=== PATIENT | female | born 1970 | race Caucasian/White ===

== ENCOUNTER 2018-08-17 15:33 | Outpatient (CLI) | payer OTHER ==
[2018-08-17] MEDS ORDERED: DULO30CA2 PO (16:03)
== END 2018-08-17 23:59 | disposition home or self-care (01) ==
LOC: STAR 15:33
PROVIDERS: ATTEND Surgery
DX: Z02.9 Encounter for administrative examinations, unspecified (principal)

== ENCOUNTER 2018-08-22 12:40 | Day surgery (SDC) | payer OTHER ==
[2018-08-17 15:29] VITALS: BP 126/80
[~2018-08-22] VITALS: Ht 172.7 cm; Wt 73.2 kg
[~2018-08-22 12:40] MED LIST: BUPIVACAINE/PF-EPI 0.5% 1:200K ONE; DULO30CA2 PO
[2018-08-22 13:25] LABS: HCG UR SG 1.033 (1.003-1.030)
[2018-08-22] MEDS ORDERED: INDOCYANINE GREEN 25 MG VIAL ONE (13:29)
[2018-08-22] MEDS ORDERED: INDOCYANINE GREEN 25 MG VIAL IV ONE (13:30)
[2018-08-22] MEDS ORDERED: LACTATED RINGERS 1,000 ML IV SCH (13:37)
[2018-08-22] MEDS ORDERED: MIDAZOLAM 1 MG/ML, 2ML ONE (13:41)
[2018-08-22] MEDS ORDERED: FENTANYL PF 250 MCG/5ML ONE (13:41)
[2018-08-22] MEDS ORDERED: APREPITANT 40 MG CAPSULE PO STA (13:42)
[2018-08-22] MEDS ORDERED: DEXAMETHASONE 4 MG/ML, 5ML ONE (13:45)
[2018-08-22] MEDS ORDERED: ONDANSETRON 2MG/ML, 2ML ONE (13:45)
[2018-08-22] MEDS ORDERED: PROPOFOL 10 MG/ML, 20ML ONE (13:45)
[2018-08-22] MEDS ORDERED: ROCURONIUM 10MG/ML,5ML ONE (13:45)
[2018-08-22] MEDS ORDERED: CEFOTETAN PMX 2GM/50ML 50 ML ONE (13:45)
[2018-08-22] MEDS ORDERED: ACETAMINOPHEN 500 MG TABLET PO ONE (14:00)
[2018-08-22] MEDS ORDERED: GABAPENTIN 300 MG CAPSULE PO ONE (14:00)
[2018-08-22] MEDS ORDERED: PROMETHAZINE 25 MG/ML, 1ML IV PRN (14:30)
[2018-08-22] MEDS ORDERED: LORazepam 2 MG/ML, 1ML IVPush PRN (14:30)
[2018-08-22] MEDS ORDERED: OXYcodone 5 MG/5 ML ORAL.SOL UDC PO PRN (14:30)
[2018-08-22] MEDS ORDERED: hydrALAzine 20 MG/ML, 1ML IV PRN (14:30)
[2018-08-22] MEDS ORDERED: HALOPERIDOL 5 MG/ML IV PRN (14:30)
[2018-08-22] MEDS ORDERED: FENTANYL PF 100 MCG/2ML IV PRN (14:30)
[2018-08-22] MEDS ORDERED: MEPERIDINE/PF 25MG/0.5ML IVPush PRN (14:30)
[2018-08-22] MEDS ORDERED: HYDROmorphone 2 MG/ML, 1ML IVPush PRN (14:30)
[2018-08-22] MEDS ORDERED: OXYcodone 5 MG/5 ML ORAL.SOL UDC ONE (15:39)
== END 2018-08-22 17:50 | disposition home or self-care (01) ==
LOC: OUT 12:40
PROVIDERS: ATTEND Surgery
DX: K80.10 Calculus of gallbladder with chronic cholecystitis without obstruction (principal); Z90.3 Acquired absence of stomach [part of]
CPT/HCPCS: 47563; 81025; 88304; J1100; J2250; J2405; J2704; J3010; J3490; J7120; J8501; S2900

== ENCOUNTER 2018-09-02 21:58 | Emergency (ER) | payer OTHER ==
[~2018-09-02] VITALS: Ht 172.7 cm; Wt 67.0 kg
[~2018-09-02 21:58] MED LIST changes: -BUPIVACAINE/PF-EPI 0.5% 1:200K ONE
--- NOTE | 2018-09-02 22:21 | NUR ---
PT PRESENTS TO ED WITH C/O RIGHT WRIST PAIN S/P FALL DOWN STAIRS TONIGHT, PT IS INTOXICATED BUT AWAKE AND ORIENTED X 4. NEURO INTACT. CMS INTACT TO RIGHT WRIST, HOWEVER WRIST IS SWOLLEN AND MILDLY DEFORMED. BP AND SPO2 MONITORS IN PLACE, CALL LIGHT IN REACH. PT MOVED TO ROOM 21, REPORT GIVEN TO EMILY TEE.
[2018-09-02] MEDS ORDERED: BUPIVACAINE 0.25% ONE (22:36)
[2018-09-02 22:53] LABS: BASOPHILS # (AUTO) 0.04 x10^3/uL (0-0.1); BASOPHILS % (AUTO) 1 % (0-1); EOSINOPHILS # (AUTO) 0.06 x10^3/uL (0-0.4); EOSINOPHILS % (AUTO) 2 % (1-7); LYMPHOCYTES # (AUTO) 1.02 x10^3/uL (1-3.4); LYMPHOCYTES % (AUTO) 32 % (22-44); MD NO; MEAN CORPUSCULAR HEMOGLOBIN 32.4 pg (27.0-34.8); MEAN CORPUSCULAR VOLUME 95.5 fL (80-100); MEAN PLATELET VOLUME 6.4 fL (7.4-10.4); MONOCYTES # (AUTO) 0.45 x10^3/uL (0.2-0.8); MONOCYTES % (AUTO) 14 % (2-9); NEUTROPHILS # (AUTO) 1.59 x10^3/uL (1.8-6.8); NEUTROPHILS % (AUTO) 50 % (42-75); PLATELET COUNT 374 x10^3/uL (130-400)
[2018-09-02] MEDS ORDERED: BUPIVACAINE 0.25% INFIL ONE (23:00)
[2018-09-02 23:05] LABS: ALANINE AMINOTRANSFERASE 66 U/L (12-78); ALBUMIN 3.2 g/dL (3.4-5.0); ANION GAP 5 mmol/L (5-15); CALCIUM 7.9 mg/dL (8.5-10.1); CHLORIDE 111 mmol/L (98-107); CREATININE 0.81 mg/dL (0.55-1.02)
[2018-09-02 23:07] LABS: ALKALINE PHOSPHATASE 93 U/L (45-117); BILIRUBIN,TOTAL 0.4 mg/dL (0.2-1.0); TOTAL PROTEIN 7.3 g/dL (6.4-8.2)
[2018-09-02 23:18] VITALS: BP 119/74
== END 2018-09-02 23:21 | disposition home or self-care (01) ==
LOC: ED 23:09
DX: S52.511A Displaced fracture of right radial styloid process, initial encounter for closed fracture (principal); S09.8XXA Other specified injuries of head, initial encounter; R51 Headache; F10.229 Alcohol dependence with intoxication, unspecified; W10.8XXA Fall (on) (from) other stairs and steps, initial encounter; Y93.89 Activity, other specified; Y92.89 Other specified places as the place of occurrence of the external cause; Y99.8 Other external cause status
CPT/HCPCS: 29125; 36415; 70450; 72125; 80053; 80307; 85025; 99284

== ENCOUNTER 2018-11-09 03:29 | Inpatient (IN) | payer OTHER ==
[~2018-11-09] VITALS: Ht 172.7 cm; Wt 69.5 kg
--- NOTE | 2018-11-09 03:44 | NUR ---
ESCORTED PATIENT (AMBULATORY AND STEADY ON FEET) TO ROOM 18. ASSUMING CARE OF PATIENT. DR. PEREZ AT BEDSIDE. PT C/O UPPER ABD PAIN AND DARK STOOLS BEGINNING AT 5PM YESTERDAY. PT ALSO C/O LIGHTHEADEDESS AND SOB DURING THE DAY YESTERDAY AND VOMITING WELL. PT APPEARS PALE BUT IN NO ACUTE DISTRESS.
[2018-11-09] MEDS ORDERED: OMEP20TA62 PO (03:49)
[2018-11-09] MEDS ORDERED: PANTOPRAZOLE 80 MG in SODIUM CHLORIDE 0.9% 100 ML IV SCH (03:52)
[2018-11-09] MEDS ORDERED: PANTOPRAZOLE 80 MG in SODIUM CHLORIDE 0.9% 50 ML IVPB ONE (03:52)
[2018-11-09] MEDS ORDERED: SODIUM CHLORIDE 0.9% 1,000ML IVBOLUS ONE (04:00)
[2018-11-09] MEDS ORDERED: SODIUM CHLORIDE FLUSH 10ML SYR IVF ONE (04:00)
[2018-11-09 04:18] LABS: BASOPHILS % (AUTO) 0 % (0-1); EOSINOPHILS % (AUTO) 0 % (1-7); LYMPHOCYTES # (AUTO) 0.66 x10^3/uL (1-3.4); LYMPHOCYTES % (AUTO) 9 % (22-44); MD NO; MEAN CORPUSCULAR HEMOGLOBIN 32.9 pg (27.0-34.8); MEAN CORPUSCULAR HGB CONC 34.1 g/dL (32.4-35.8); MEAN CORPUSCULAR VOLUME 96.6 fL (80-100); MEAN PLATELET VOLUME 7.3 fL (7.4-10.4); MONOCYTES # (AUTO) 0.24 x10^3/uL (0.2-0.8); MONOCYTES % (AUTO) 3 % (2-9); NEUTROPHILS # (AUTO) 6.86 x10^3/uL (1.8-6.8); NEUTROPHILS % (AUTO) 88 % (42-75); PLATELET COUNT 258 x10^3/uL (130-400); RED BLOOD COUNT 4.67 x10^6/uL (3.82-5.3); RED CELL DISTRIBUTION WIDTH 18.2 % (9.6-15.2)
[2018-11-09] MEDS ORDERED: ONDANSETRON 2MG/ML, 2ML ONE (04:25)
[2018-11-09 04:26] LABS: INTERNATIONAL NORMALIZED RATIO 1.1 (0.93-1.1); PROTHROMBIN TIME 11.5 Seconds (9.6-11.5)
[2018-11-09 04:27] LABS: ALANINE AMINOTRANSFERASE 44 U/L (12-78); ALBUMIN 4.2 g/dL (3.4-5.0); ANION GAP 17 mmol/L (5-15); CHLORIDE 100 mmol/L (98-107); CREATININE 1.25 mg/dL (0.55-1.02)
[2018-11-09 04:30] LABS: ALKALINE PHOSPHATASE 149 U/L (45-117); BILIRUBIN,TOTAL 2.2 mg/dL (0.2-1.0); TOTAL PROTEIN 9.6 g/dL (6.4-8.2)
[2018-11-09] MEDS ORDERED: ONDANSETRON 2MG/ML, 2ML IVPush ONE (04:30)
--- NOTE | 2018-11-09 04:32 | NUR ---
PROTONIX BOLUS STARTED AND PATIENT COMPLAINED OF NAUSEA. DR. PEREZ NOTIFIED. ZOFRAN ORDERED AND GIVEN. PT ON HOSPITAL CODER AND IS IN SINUS TACHYCARDIA WITH NO ECTOPIC BEATS. PATIENT RESTING WITH NO DISTRESS AND NO OTHER COMPLAINTS.
--- NOTE | 2018-11-09 04:34 | NUR ---
PROTONIX BOLUS COMPLETE. HOLDING PROTONIX INFUSION PER DR. PEREZ.
[2018-11-09] MEDS ORDERED: MORPHINE SULFATE 4 MG/ML, 1ML ONE (04:47)
--- NOTE | 2018-11-09 04:49 | NUR ---
PATIENT MEDICATED WITH MORPHINE IVP FOR PAIN 02/09.
[2018-11-09] MEDS ORDERED: MORPHINE SULFATE 4 MG/ML, 1ML IVPush PRN (05:00)
[2018-11-09] MEDS: SODIUM CHLORIDE 0.9% 1,000 ML IV ONE ×2 (05:03→05:22)
[2018-11-09] MEDS: NS + 20MEQ KCL 1,000 ML IV SCH ×2 (05:07→21:50)
--- NOTE | 2018-11-09 05:07 | NUR ---
PT TO CT AT THIS TIME.
[2018-11-09] MEDS ORDERED: OMNIPAQUE 350 MG/ML, 100ML BOTTLE ONE (05:21)
--- NOTE | 2018-11-09 05:24 | NUR ---
SB[facility] TELEPHONE HAND-OFF REPORT GIVEN TO EMILY ROBISON. PT READY TO GO TO HOSPITAL ROOM. CLARIFIED ADMITTING IV FLUID ORDER WITH DR. PEREZ. PATIENT IS TO HAVE BANANA BAG FIRST, THEN NS WITH KCL AFTER BANANA BAG.
[2018-11-09] MEDS ORDERED: ONDANSETRON 2MG/ML, 2ML IVPush PRN (05:30)
[2018-11-09] MEDS ORDERED: LORazepam 2 MG/ML, 1ML ONE (05:56)
[2018-11-09] MEDS: LORazepam 2 MG/ML, 1ML IVPush PRN ×2 (05:59→11:30)
[2018-11-09 06:08] VITALS: BP 130/85
[2018-11-09 06:28] LABS: MICROSCOPIC INDICATED
[2018-11-09 06:32] LABS: HCG UR SG > 1.045 (1.003-1.030)
[2018-11-09 06:46] LABS: CULTURE INDICATED? YES
[2018-11-09] MEDS: POTASSIUM CHLORIDE 20 MEQ, MAGNESIUM SULFATE 1 GM, MVI ADULT 10 ML, THIAMINE 200 MG, FO... IV SCH (08:49)
[2018-11-09] MEDS: FAMOTIDINE 20 MG/2 ML IVPush SCH ×2 (08:49→20:32)
[2018-11-09] MEDS: DULOXETINE 30 MG CAPSULE.DR PO SCH (08:49)
[2018-11-09] MEDS: morphine SULFATE 10 MG/ML, 1ML IVPush PRN ×3 (08:54→20:50)
[2018-11-09 14:21] VITALS: BP 113/73
[2018-11-09 20:43] VITALS: BP 136/89
[2018-11-10 00:44] VITALS: BP 130/89
[2018-11-10] MEDS: morphine SULFATE 10 MG/ML, 1ML IVPush PRN (03:00)
[2018-11-10 04:17] LABS: ALANINE AMINOTRANSFERASE 26 U/L (12-78); ALBUMIN 2.6 g/dL (3.4-5.0); ANION GAP 10 mmol/L (5-15); CALCIUM 7.3 mg/dL (8.5-10.1); CHLORIDE 110 mmol/L (98-107); CREATININE 0.61 mg/dL (0.55-1.02)
[2018-11-10 04:19] LABS: ALKALINE PHOSPHATASE 101 U/L (45-117); BILIRUBIN,TOTAL 0.6 mg/dL (0.2-1.0)
[2018-11-10 06:28] LABS: MEAN CORPUSCULAR HEMOGLOBIN 33.2 pg (27.0-34.8); MEAN CORPUSCULAR HGB CONC 33.9 g/dL (32.4-35.8); MEAN CORPUSCULAR VOLUME 97.8 fL (80-100); MEAN PLATELET VOLUME 7.1 fL (7.4-10.4); PLATELET COUNT 114 x10^3/uL (130-400); RED BLOOD COUNT 3.11 x10^6/uL (3.82-5.3); RED CELL DISTRIBUTION WIDTH 18.4 % (9.6-15.2)
[2018-11-10 06:29] LABS: BASOPHILS # (AUTO) 0.02 x10^3/uL (0-0.1); BASOPHILS % (AUTO) 0 % (0-1); EOSINOPHILS # (AUTO) 0.03 x10^3/uL (0-0.4); EOSINOPHILS % (AUTO) 0 % (1-7); LYMPHOCYTES # (AUTO) 0.77 x10^3/uL (1-3.4); LYMPHOCYTES % (AUTO) 12 % (22-44); MD SCAN; MONOCYTES # (AUTO) 0.45 x10^3/uL (0.2-0.8); MONOCYTES % (AUTO) 7 % (2-9); NEUTROPHILS # (AUTO) 5.24 x10^3/uL (1.8-6.8); NEUTROPHILS % (AUTO) 81 % (42-75)
[2018-11-10] MEDS: POTASSIUM CHLORIDE 20 MEQ, MAGNESIUM SULFATE 1 GM, MVI ADULT 10 ML, THIAMINE 200 MG, FO... IV SCH (06:30)
[2018-11-10 06:42] VITALS: BP 133/90
[2018-11-10] MEDS: FAMOTIDINE 20 MG/2 ML IVPush SCH (08:15)
[2018-11-10] MEDS: DULOXETINE 30 MG CAPSULE.DR PO SCH (08:16)
[2018-11-10 13:20] VITALS: BP 117/81
[2018-11-10] MEDS: NS + 20MEQ KCL 1,000 ML IV SCH (14:59)
== END 2018-11-10 16:33 | disposition home or self-care (01) | DRG 438 ==
LOC: ED 03:43 → EDIP 04:52 → 4WST 06:03
PROVIDERS: ADMIT Family Medicine; ATTEND Family Medicine
DX: K85.20 Alcohol induced acute pancreatitis without necrosis or infection (principal); N17.0 Acute kidney failure with tubular necrosis; F10.10 Alcohol abuse, uncomplicated; E86.0 Dehydration; E87.6 Hypokalemia; F32.9 Major depressive disorder, single episode, unspecified; Z87.11 Personal history of peptic ulcer disease; Z98.84 Bariatric surgery status; Z90.49 Acquired absence of other specified parts of digestive tract
CPT/HCPCS: 36415; 96361; 99285; J3490; 71045; 74177; 80053; 81001; 81025; 83690; 84478; 85025; 85610; 85730; 86850; 86900; 87086; 93005; 96374; 96375; G0378; J2405; J3411; J3475; J3480; Q9967; C9113; J2060; J2270; J7030

== ENCOUNTER 2018-11-12 09:36 | Emergency (ER) | payer OTHER ==
[~2018-11-12] VITALS: Ht 172.7 cm; Wt 69.2 kg
[~2018-11-12 09:36] MED LIST changes: +OMEP20TA62 PO
[2018-11-12 10:19] LABS: BASOPHILS # (AUTO) 0.01 x10^3/uL (0-0.1); BASOPHILS % (AUTO) 0 % (0-1); EOSINOPHILS # (AUTO) 0.11 x10^3/uL (0-0.4); EOSINOPHILS % (AUTO) 3 % (1-7); LYMPHOCYTES # (AUTO) 0.73 x10^3/uL (1-3.4); LYMPHOCYTES % (AUTO) 17 % (22-44); MD NO; MEAN CORPUSCULAR HGB CONC 33.9 g/dL (32.4-35.8); MEAN CORPUSCULAR VOLUME 97.5 fL (80-100); MEAN PLATELET VOLUME 7.6 fL (7.4-10.4); MONOCYTES % (AUTO) 7 % (2-9); NEUTROPHILS # (AUTO) 3.17 x10^3/uL (1.8-6.8); NEUTROPHILS % (AUTO) 74 % (42-75); PLATELET COUNT 130 x10^3/uL (130-400); RED BLOOD COUNT 3.26 x10^6/uL (3.82-5.3); RED CELL DISTRIBUTION WIDTH 18.1 % (9.6-15.2)
[2018-11-12 10:30] LABS: CHLORIDE 108 mmol/L (98-107)
[2018-11-12 10:36] LABS: ALANINE AMINOTRANSFERASE 20 U/L (12-78); ALBUMIN 3.1 g/dL (3.4-5.0); ALKALINE PHOSPHATASE 92 U/L (45-117); ANION GAP 7 mmol/L (5-15); BILIRUBIN,TOTAL 0.6 mg/dL (0.2-1.0); CALCIUM 8.3 mg/dL (8.5-10.1); CREATININE 0.64 mg/dL (0.55-1.02); TOTAL PROTEIN 7.5 g/dL (6.4-8.2)
--- NOTE | 2018-11-12 10:39 | NUR ---
pt to room from lobby. pt changed into gown. pt ambulatory with steady gait to bathroom.
--- NOTE | 2018-11-12 10:46 | NUR ---
pt states she started haveing diarrhea on monday night and into monday morning. back pain both sides started yesterday pain was 8/10 and is now 5/10. normal BM this morning.
[2018-11-12 11:14] LABS: MICROSCOPIC INDICATED
[2018-11-12 11:16] LABS: CULTURE INDICATED? YES
[2018-11-12 11:59] VITALS: BP 129/82
--- NOTE | 2018-11-12 12:02 | NUR ---
pt resting on [place]. family at bedside. pt states her pain is 6/10 in her back.
[2018-11-12] MEDS ORDERED: HYDROmorphone 2 MG/ML, 1ML ONE (12:27)
[2018-11-12] MEDS ORDERED: HYDROmorphone 1 MG/ML, 1ML INJ IM ONE (12:30)
--- NOTE | 2018-11-12 13:15 | NUR ---
ER to pt room. education provided on the importance of stoping alcohol consumption. Pt teary and acknowledges her addiction issues with MD. Pt to be D/C'd.
== END 2018-11-12 14:00 | disposition home or self-care (01) ==
LOC: ED 11:47
DX: N30.00 Acute cystitis without hematuria (principal); K85.20 Alcohol induced acute pancreatitis without necrosis or infection; Z90.49 Acquired absence of other specified parts of digestive tract
CPT/HCPCS: 36415; 80053; 81001; 82977; 83690; 85025; 87086; 96372; 99283; J1170

== ENCOUNTER 2019-01-29 11:20 | Inpatient (IN) | payer OTHER ==
[~2019-01-29] VITALS: Ht 172.7 cm; Wt 70.3 kg
--- NOTE | 2019-01-29 11:58 | NUR ---
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
[2019-01-29] MEDS ORDERED: LORazepam 1MG TABLET PO ONE (12:00)
[2019-01-29] MEDS ORDERED: ONDANSETRON ODT 4 MG PO ONE (12:00)
[2019-01-29] MEDS ORDERED: THIAMINE 100MG TABLET PO ONE (12:00)
[2019-01-29 12:13] LABS: BASOPHILS # (AUTO) 0.01 x10^3/uL (0-0.1); BASOPHILS % (AUTO) 0 % (0-1); EOSINOPHILS % (AUTO) 0 % (1-7); LYMPHOCYTES # (AUTO) 0.97 x10^3/uL (1-3.4); LYMPHOCYTES % (AUTO) 15 % (22-44); MD NO; MEAN CORPUSCULAR HEMOGLOBIN 33.6 pg (27.0-34.8); MEAN CORPUSCULAR HGB CONC 33.4 g/dL (32.4-35.8); MEAN CORPUSCULAR VOLUME 100.5 fL (80-100); MEAN PLATELET VOLUME 7.2 fL (7.4-10.4); MONOCYTES # (AUTO) 0.32 x10^3/uL (0.2-0.8); MONOCYTES % (AUTO) 5 % (2-9); NEUTROPHILS # (AUTO) 5.09 x10^3/uL (1.8-6.8); NEUTROPHILS % (AUTO) 80 % (42-75); PLATELET COUNT 130 x10^3/uL (130-400); RED BLOOD COUNT 3.62 x10^6/uL (3.82-5.3); RED CELL DISTRIBUTION WIDTH 16.5 % (9.6-15.2)
[2019-01-29] MEDS ORDERED: ONDANSETRON ODT 4 MG ONE (12:19)
[2019-01-29] MEDS ORDERED: THIAMINE 100MG TABLET ONE (12:19)
[2019-01-29] MEDS ORDERED: LORazepam 1MG TABLET ONE (12:19)
[2019-01-29 12:51] LABS: ALBUMIN 3.4 g/dL (3.4-5.0); ANION GAP 10 mmol/L (5-15); CHLORIDE 101 mmol/L (98-107)
[2019-01-29 13:14] LABS: ALANINE AMINOTRANSFERASE 38 U/L (12-78); ALKALINE PHOSPHATASE 155 U/L (45-117); BILIRUBIN,TOTAL 1.4 mg/dL (0.2-1.0); CREATININE 0.89 mg/dL (0.55-1.02); TOTAL PROTEIN 7.8 g/dL (6.4-8.2)
[2019-01-29] MEDS ORDERED: NEOSPORIN OINT. PKT 1 PACKET ONE ×2 (13:16→13:20)
[2019-01-29] MEDS ORDERED: DIPH,PERTUSS(ACELL),TET VAC/PF 0.5 ML IM-VACC ONE ×2 (13:30→14:03)
[2019-01-29] MEDS ORDERED: CEFAZOLIN PMX 1GM/50ML 50 ML IVPB ONE (13:30)
[2019-01-29] MEDS ORDERED: MULT-90 PO (13:50)
[2019-01-29] MEDS ORDERED: CEFAZOLIN PMX 1GM/50ML 50 ML ONE (14:02)
[2019-01-29] MEDS ORDERED: POTASSIUM CHLORIDE 20 MEQ TAB.ER.PRT PO ONE ×2 (14:30→16:00)
[2019-01-29] MEDS ORDERED: ASA/APAP/ CAFFEINE TABLET PO PRN (15:30)
[2019-01-29] MEDS ORDERED: ONDANSETRON ODT 4 MG PO PRN (15:30)
[2019-01-29] MEDS ORDERED: DOCUSATE 100 MG CAPSULE PO PRN (15:30)
[2019-01-29] MEDS ORDERED: CHLORDIAZEPOXIDE 25 MG CAPSULE PO PRN (15:30)
[2019-01-29] MEDS ORDERED: ONDANSETRON 2MG/ML, 2ML IVPush PRN (15:30)
[2019-01-29] MEDS ORDERED: ZOLPIDEM 5MG TABLET PO PRN (15:30)
[2019-01-29] MEDS ORDERED: ENALAPRILAT 1.25 MG/ML, 2ML IVPush PRN (15:30)
[2019-01-29] MEDS ORDERED: GUAIFENESIN/DM 200-20MG, 10ML UDC PO PRN (15:30)
[2019-01-29] MEDS ORDERED: LACTATED RINGERS 1,000 ML IV ONE (15:30)
[2019-01-29 15:48] VITALS: BP 127/88
[2019-01-29] MEDS ORDERED: CHOLECALCIFEROL 400 UNITS/ML ORAL SOL PO SCH (16:30)
[2019-01-29] MEDS ORDERED: CHOLECALCIFEROL 400 UNITS TABLET PO SCH (16:30)
[2019-01-29] MEDS: ASCORBIC ACID 500 MG TABLET PO SCH (17:54)
[2019-01-29 19:58] VITALS: BP 129/85
[2019-01-29] MEDS: CALCIUM CARBONATE 500 MG TAB.CHEW PO SCH (20:10)
[2019-01-29] MEDS: FAMOTIDINE 20 MG TABLET PO SCH (20:10)
[2019-01-30 02:01] VITALS: BP 131/88
[2019-01-30 05:26] LABS: CALCIUM 7.7 mg/dL (8.5-10.1); CHLORIDE 105 mmol/L (98-107)
[2019-01-30 05:35] LABS: ANION GAP 6 mmol/L (5-15); CREATININE 0.62 mg/dL (0.55-1.02)
[2019-01-30 06:14] LABS: BASOPHILS # (AUTO) 0.01 x10^3/uL (0-0.1); BASOPHILS % (AUTO) 0 % (0-1); EOSINOPHILS # (AUTO) 0.05 x10^3/uL (0-0.4); EOSINOPHILS % (AUTO) 2 % (1-7); LYMPHOCYTES # (AUTO) 1.07 x10^3/uL (1-3.4); LYMPHOCYTES % (AUTO) 36 % (22-44); MD SCAN; MEAN CORPUSCULAR HEMOGLOBIN 33.5 pg (27.0-34.8); MEAN CORPUSCULAR VOLUME 101.5 fL (80-100); MEAN PLATELET VOLUME 8.1 fL (7.4-10.4); MONOCYTES # (AUTO) 0.23 x10^3/uL (0.2-0.8); MONOCYTES % (AUTO) 8 % (2-9); NEUTROPHILS # (AUTO) 1.65 x10^3/uL (1.8-6.8); NEUTROPHILS % (AUTO) 55 % (42-75); PLATELET COUNT 81 x10^3/uL (130-400); RED CELL DISTRIBUTION WIDTH 16.1 % (9.6-15.2)
[2019-01-30 07:29] VITALS: BP 140/85
[2019-01-30] MEDS ORDERED: POTASSIUM CHLORIDE 20 MEQ TAB.ER.PRT PO ONE (07:30)
[2019-01-30] MEDS ORDERED: POTA20TA6 PO (07:47)
[2019-01-30] MEDS ORDERED: FOLI-17 PO (07:47)
[2019-01-30] MEDS ORDERED: CYAN100028 PO (07:47)
[2019-01-30] MEDS ORDERED: THIA100T67 PO (07:47)
[2019-01-30 07:50] LABS: ALBUMIN 2.6 g/dL (3.4-5.0); BILIRUBIN, DIRECT 0.4 mg/dL (0.1-0.2)
[2019-01-30 07:53] LABS: BILIRUBIN,INDIRECT 0.3 mg/dL (0.0-2.0); BILIRUBIN,TOTAL 0.7 mg/dL (0.2-1.0); TOTAL PROTEIN 6.5 g/dL (6.4-8.2)
[2019-01-30] MEDS: CALCIUM CARBONATE 500 MG TAB.CHEW PO SCH (08:37)
[2019-01-30] MEDS: FAMOTIDINE 20 MG TABLET PO SCH (08:38)
[2019-01-30] MEDS: ASCORBIC ACID 500 MG TABLET PO SCH (08:38)
[2019-01-30] MEDS ORDERED: THIAMINE 100MG TABLET PO SCH (09:00)
[2019-01-30] MEDS ORDERED: MULTIVITS,STRESS FORMULA 1 TABLET PO SCH (09:00)
[2019-04-18] MEDS ORDERED: DISU250T2 PO (00:28)
[2019-04-18] MEDS ORDERED: ACYC-113 PO (00:28)
[2019-04-18] MEDS ORDERED: TOPI25TA8 PO (00:28)
[2019-04-18] MEDS ORDERED: DULO20CA45 PO (00:28)
[2019-04-18] MEDS ORDERED: ATOR20TA37 PO (00:28)
[2019-04-18] MEDS ORDERED: BACL20TA PO (00:28)
[2019-04-20] MEDS ORDERED: NALT50TA PO (07:55)
== END 2019-01-30 10:10 | disposition home or self-care (01) | DRG 896 ==
LOC: ED 12:53 → EDIP 12:54 → ED 13:34 → 4WST 14:37 → DCLOUNGE 01-30 09:19
PROVIDERS: ADMIT Internal Medicine; ATTEND Internal Medicine
DX: F10.230 Alcohol dependence with withdrawal, uncomplicated (principal); K85.20 Alcohol induced acute pancreatitis without necrosis or infection; R17 Unspecified jaundice; Y90.9 Presence of alcohol in blood, level not specified; E87.6 Hypokalemia; D69.6 Thrombocytopenia, unspecified; R74.0 Nonspecific elevation of levels of transaminase and lactic acid dehydrogenase [LDH]; D53.9 Nutritional anemia, unspecified; E53.8 Deficiency of other specified B group vitamins; D75.89 Other specified diseases of blood and blood-forming organs; E83.51 Hypocalcemia; Z96.631 Presence of right artificial wrist joint; D72.819 Decreased white blood cell count, unspecified; F41.9 Anxiety disorder, unspecified; F32.9 Major depressive disorder, single episode, unspecified; Z87.440 Personal history of urinary (tract) infections; Z87.11 Personal history of peptic ulcer disease; Z98.84 Bariatric surgery status; Z90.49 Acquired absence of other specified parts of digestive tract
CPT/HCPCS: 36415; 80048; 80053; 80076; 82607; 83690; 83735; 85025; 90471; 90715; 93005; 96365; G0378; J0690; Q0162; J7120

== ENCOUNTER 2019-07-27 14:10 | Emergency (ER) | payer OTHER ==
[~2019-07-27] VITALS: Ht 172.7 cm; Wt 59.9 kg
[~2019-07-27 14:10] MED LIST changes: +ACYC-113 PO; +ATOR20TA37 PO; +BACL20TA PO; +CYAN100028 PO; +DISU250T2 PO; +DULO20CA45 PO; +FOLI-17 PO; +MULT-90 PO; +NALT50TA PO; +POTA20TA6 PO; +THIA100T67 PO; +TOPI25TA8 PO
--- NOTE | 2019-07-27 14:39 | NUR ---
PT WAS BINGE DRINKING ON A CRUISE FOR A WEEK. CAME HOME MONDAY. AND IS CO OF NVD, MAGANA, SHAKINESS AND FEELING WEAK. PT HASNT BEEN ABLE TO EAT OR DRINK ANYTHING. BLANKET AND EMESIS BAG PROVIDED. CALL LIGHT WITHIN REACH
[2019-07-27] MEDS ORDERED: THIAMINE 100MG TABLET ONE (14:52)
[2019-07-27] MEDS ORDERED: PROMETHAZINE 25 MG/ML, 1ML ONE (14:53)
[2019-07-27] MEDS ORDERED: THIAMINE 100MG TABLET PO ONE (15:00)
[2019-07-27] MEDS ORDERED: SODIUM CHLORIDE FLUSH 10ML SYR IVF ONE (15:00)
[2019-07-27] MEDS ORDERED: PROMETHAZINE 25 MG/ML, 1ML IM ONE (15:00)
[2019-07-27] MEDS ORDERED: SODIUM CHLORIDE 0.9% 1,000ML IVBOLUS ONE ×2 (15:00→17:00)
[2019-07-27 15:03] LABS: BASOPHILS % (AUTO) 0 % (0-1); EOSINOPHILS % (AUTO) 0 % (1-7); LYMPHOCYTES % (AUTO) 7 % (22-44); MD NO; MEAN CORPUSCULAR HEMOGLOBIN 33.1 pg (27.0-34.8); MEAN CORPUSCULAR HGB CONC 31.9 g/dL (32.4-35.8); MEAN CORPUSCULAR VOLUME 103.5 fL (80-100); MONOCYTES # (AUTO) 0.31 x10^3/uL (0.2-0.8); MONOCYTES % (AUTO) 4 % (2-9); NEUTROPHILS # (AUTO) 7.39 x10^3/uL (1.8-6.8); NEUTROPHILS % (AUTO) 89 % (42-75); PLATELET COUNT 177 x10^3/uL (130-400); RED BLOOD COUNT 3.89 x10^6/uL (3.82-5.3); RED CELL DISTRIBUTION WIDTH 20.5 % (9.6-15.2)
[2019-07-27 15:11] LABS: ALANINE AMINOTRANSFERASE 919 U/L (12-78); ALBUMIN 3.1 g/dL (3.4-5.0); ANION GAP 15 mmol/L (5-15); CALCIUM 8.4 mg/dL (8.5-10.1); CHLORIDE 102 mmol/L (98-107); CREATININE 1.41 mg/dL (0.55-1.02)
[2019-07-27 15:20] LABS: ALKALINE PHOSPHATASE 361 U/L (45-117); BILIRUBIN,TOTAL 3.1 mg/dL (0.2-1.0); TOTAL PROTEIN 7.8 g/dL (6.4-8.2)
--- NOTE | 2019-07-27 15:47 | NUR ---
PT RESTING IN HOSPITAL BED. WARM BLANKET PROVIDED. UP FOR RECHECK
[2019-07-27] MEDS ORDERED: METOCLOPRAMIDE 5 MG/ML, 2ML ONE (16:19)
[2019-07-27] MEDS ORDERED: FAMOTIDINE 20 MG/2 ML ONE (16:19)
[2019-07-27] MEDS ORDERED: FAMOTIDINE 20 MG/2 ML IVPush ONE (16:30)
[2019-07-27] MEDS ORDERED: METOCLOPRAMIDE 5 MG/ML, 2ML IVPush ONE (16:30)
--- NOTE | 2019-07-27 16:30 | NUR ---
PT REPORTS LITTLE IMRPOVEMENT FOR NAUSEA WELL ABD PAIN. MD NOTIFIED. SEE MAR FOR INTERVENTIONS.
--- NOTE | 2019-07-27 17:00 | NUR ---
US IN WITH PT
[2019-07-27 17:23] VITALS: BP 95/61
--- NOTE | 2019-07-27 18:25 | NUR ---
PT REPORTS IMPROVEMENT IN NAUSEA LEVEL
== END 2019-07-27 19:19 | disposition home or self-care (01) ==
LOC: ED 15:19
DX: F10.239 Alcohol dependence with withdrawal, unspecified (principal); K70.10 Alcoholic hepatitis without ascites; Y90.9 Presence of alcohol in blood, level not specified
CPT/HCPCS: 36415; 76700; 80053; 83690; 85025; 96361; 96372; 96374; 96375; 99284; J2550; J2765; J3490; J7030